=== PATIENT | female | born 1980 ===

== ENCOUNTER 2017-01-07 17:28 | Observation (INO) | payer OTHER ==
[2017-01-07] MEDS ORDERED: Iohexol 240 (50 ml) PO ONE (18:34)
[2017-01-07] MEDS ORDERED: Sodium Chloride 0.9% 1,000 ML IV STA (18:35)
--- NOTE | 2017-01-07 18:48 | ED PDOC ---
HPI: Abdomen Time Seen by Provider: 01/07/17 18:12 Chief Complaint (Nursing): Abdominal Pain Chief Complaint (Provider): Abdominal Pain History Per: Patient History/Exam Limitations: no limitations Onset/Duration Of Symptoms: Days (2x) Current Symptoms Are (Timing): Still Present Severity: Moderate Location Of Pain/Discomfort: Periumbilical Associated Symptoms: Nausea, Vomiting. denies: Fever, Diarrhea, Constipation Additional Complaint(s): 36 year old female with no pertinent medical history presents to the ED with complaints of abdominal pain accompanied by nausea, vomiting and diarrhea that started 2x days ago. Patient took motrin prior to arrival with no relief. She denies having constipation, or any other medical complaints. Past Medical History Reviewed: Historical Data, Nursing Documentation, Vital Signs Vital Signs: Last Vital Signs Temp 97.8 F 01/07/17 17:46 Pulse 96 H 01/07/17 17:46 Resp 18 01/07/17 17:46 BP 143/69 01/07/17 17:46 Pulse Ox 100 01/07/17 18:58 - Medical History PMH: No Chronic Diseases - Surgical History Other surgeries: tummy tuck (years ago) - Family History Family History: States: Unknown Family Hx - Social History Current smoker - smoking cessation education provided: No Alcohol: None Drugs: Denies - Immunization History Hx Tetanus Toxoid Vaccination: No - Home Medications Home Medications: Ambulatory Orders Medication Instructions Recorded Acetaminophen/Oxycodone Hydr 1 tab PO Q4H #15 tab 08/07/13 [Percocet 325 mg-5 mg] - Allergies Allergies/Adverse Reactions: Allergies Allergy/AdvReac Type Severity Reaction Status Date / Time No Known Allergies Allergy Unverified 08/07/13 13:50 Review of Systems ROS Statement: Except As Marked, All Systems Reviewed And Found Negative Constitutional: Negative for: Fever Gastrointestinal: Positive for: Nausea, Vomiting, Abdominal Pain. Negative for : Diarrhea, Constipation Physical Exam - Reviewed Nursing Documentation Reviewed: Yes Vital Signs Reviewed: Yes - Physical Exam Appears: Positive for: Non-toxic, In Acute Distress (mild painful distress) Head Exam: Positive for: ATRAUMATIC, NORMOCEPHALIC Skin: Positive for: Normal Color, Warm, Dry Cardiovascular/Chest: Positive for: Regular Rate, Rhythm Respiratory: Positive for: Normal Breath Sounds. Negative for: Respiratory Distress Gastrointestinal/Abdominal: Positive for: Tenderness (periumbilical tenderness) Back: Positive for: Normal Inspection Neurologic/Psych: Positive for: Alert, Oriented (3x) - ECG O2 Sat by Pulse Oximetry: 100 (RA) Pulse Ox Interpretation: Normal Medical Decision Making Medical Decision Makin:12 Initial impression: 36 year old female with abdominal pain, nausea, vomiting, and diarrhea. Initial plan: * type and screen * beta-HCG * CMP * lipase * CBC * IV NS 1,000ml IV 200mls/hr * zofran 4mg IV * pepcid 20mg IVP * US abdomen complete * reevaluation 18:34 Patient is being placed into ED observation secondary to clinical condition. See ED observation note for further update. 19:00 Patient is singed out to Shady Whelan MD pending labs, US, reevaluation, and final disposition. Scribe Attestation: Documented by Mala Harrell, acting as a scribe for Eldon Ibrahim MD. Provider Scribe Attestation: All medical record entries made by the Scribe were at my direction and personally dictated by me. I have reviewed the chart and agree that the record accurately reflects my personal performance of the history, physical exam, medical decision making, and the department course for this patient. I have also personally directed, reviewed, and agree with the discharge instructions and disposition. ED OBSERVATION Date of observation admission: 01/07/17 Time of observation admission: 18:34 - Observation admission statement Patient is being placed in observation because:: Need for additional diagnostics to rule out acute or life threatening condition. - Goals of Observation Goals of observation are:: Resolution of symptoms - Progress Note Progress Note: 01/07/17 19:01 Rule out ectopic
[2017-01-07 18:54] LABS: BASO # 0.1 K/uL (0.0-0.2); BASO % 0.4 % (0.0-2.0); EOS # 0.1 K/uL (0.0-0.7); EOS % 0.8 % (0.0-4.0); HEMATOCRIT 37.9 % (34.0-47.0); LYMPH # 3.3 K/uL (1.0-4.3); LYMPH % 25.3 % (20.0-40.0); MEAN CORPUSCULAR HGB CONC 31.8 g/dL (33.0-37.0); MEAN PLATELET VOLUME 8.9 fl (7.2-11.7); MONO # 0.7 K/uL (0.0-0.8); MONO % 5.4 % (0.0-10.0); NEUT # 8.8 K/uL (1.8-7.0); NEUT % 68.1 % (50.0-75.0); NRBC % 0.1 % (0.0-0.0); RED CELL DISTRIBUTION WIDTH 16.2 % (11.5-14.5); WHITE BLOOD COUNT 12.9 K/uL (4.8-10.8)
--- NOTE | 2017-01-07 19:06 | ED PDOC ---
- Laboratory Results Result Diagrams: 01/07/17 18:41 01/07/17 18:41 - ECG O2 Sat by Pulse Oximetry: 100 (RA) Medical Decision Making Medical Decision Makin:00 Patient is signed out to me by Hung Ibrahim pending US, labs, reevaluation, and final disposition. US impression: 1. Single live intrauterine gestation. 2. RIGHT ovarian cyst. US abdomen complete impression: 1. Hepatic steatosis. 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 Return precautions given. Scribe Attestation: Documented by Mala Harrell, acting as a scribe for Shady Whelan MD. Provider Scribe Attestation: All medical record entries made by the Scribe were at my direction and personally dictated by me. I have reviewed the chart and agree that the record accurately reflects my personal performance of the history, physical exam, medical decision making, and the department course for this patient. I have also personally directed, reviewed, and agree with the discharge instructions and disposition. Disposition - Clinical Impression Clinical Impression: Abdominal pain during - POA Present On Arrival: None - Disposition Disposition: Routine/Home Disposition Time: 23:10 Condition: STABLE
[2017-01-07 19:09] LABS: ALB/GLOB RATIO 1.3 (1.0-2.1); ALKALINE PHOSPHATASE 78 U/L (38-126); ALT/SGPT 33 U/L (9-52); AST/SGOT 28 U/L (14-36); BILIRUBIN,TOTAL 0.2 mg/dl (0.2-1.3); BLOOD UREA NITROGEN 12 mg/dl (7-17); CALCIUM 8.9 mg/dL (8.4-10.2); CARBON DIOXIDE 23 mmol/L (22-30); CHLORIDE 105 mmol/L (98-107); GFR AFRICAN-AMERICAN > 60; GLUCOSE,RANDOM 66 mg/dL (65-105); LIPASE 101 U/L (23-300); POTASSIUM 3.6 MMOL/L (3.6-5.0); SODIUM 138 mmol/l (132-148); TOTAL PROTEIN 7.5 G/DL (6.3-8.2)
--- NOTE | 2017-01-07 21:42 | US ---
EXAM: US First Trimester, Transabdominal CLINICAL HISTORY: 36 years old, female; Pain; Other: Abd pain; Gestational age or lmp: Unknown; ; Additional info: Early preg, abd pain TECHNIQUE: Real-time transabdominal obstetrical ultrasound of the maternal pelvis and a first trimester with image documentation. COMPARISON: No relevant prior studies available. FINDINGS: Gestation: Single live intrauterine gestation. heart rate of 155 beats per minute. [place]-rump length of 0.97 cm, correlating with gestational age of 7 weeks 0 days. Uterus/cervix: No subchorionic hemorrhage. No cervical dilatation or effacement. Ovaries: RIGHT ovary: 1.5 x 1.3 x 1.3 cm anechoic lesion. LEFT ovary: Not visualized. No adnexal masses. Free fluid: No significant free fluid. IMPRESSION: 1. Single live intrauterine gestation. 2. RIGHT ovarian cyst. 3. Incidental/non-acute findings are described above. EXAM: US , Transvaginal CLINICAL HISTORY: 36 years old, female; Pain; Other: Abd pain; Gestational age or lmp: Unknown; ; Additional info: Early preg, abd pain TECHNIQUE: Real-time transvaginal obstetrical ultrasound of the maternal pelvis and a first trimester with image documentation. Transvaginal imaging was used for better evaluation of the fetus and adnexa. COMPARISON: No relevant prior studies available. FINDINGS: Gestation: Single live intrauterine gestation. heart rate of 155 beats per minute. [place]-rump length of 0.97 cm, correlating with gestational age of 7 weeks 0 days. Uterus/cervix: No subchorionic hemorrhage. No cervical dilatation or effacement. Ovaries: RIGHT ovary: 1.5 x 1.3 x 1.3 cm anechoic lesion. LEFT ovary: Not visualized. No adnexal masses. Free fluid: No significant free fluid.
--- NOTE | 2017-01-07 21:44 | US ---
EXAM: US Abdomen Complete CLINICAL HISTORY: 36 years old, female; Pain; Abdominal pain; Generalized; ; Additional info: Diffuse abd pain TECHNIQUE: Real-time ultrasound of the abdomen (complete) with image documentation. COMPARISON: No relevant prior studies available. FINDINGS: Liver: Fatty infiltration. No mass. No extrahepatic ductal dilatation. Gallbladder: Fold. No gallstones. No wall thickening. No pericholecystic fluid. No sonographic Cornejo's sign. Common bile duct: No dilatation. No stones. Pancreas: Unremarkable as visualized. Kidneys: Normal echogenicity. No hydronephrosis. Spleen: No splenomegaly. Aorta: Unremarkable. No aneurysm. Inferior vena cava: Unremarkable. Free fluid: No significant free fluid. IMPRESSION: 1. Hepatic steatosis. 2. Incidental/non-acute findings are described above.
[2017-01-07 23:08] VITALS: BP 129/73; PULSE 82; RESP 16
[2017-01-07 23:09] VITALS: TEMP 98.2
[2017-01-07 23:24] VITALS: O2SAT 100
== END 2017-01-07 22:53 | disposition home or self-care (01) ==
LOC: H.ER 17:28 → H.EROBSV 18:34
PROVIDERS: ADMIT Emergency Medicine; ATTEND Emergency Medicine
DX: O34.81 Maternal care for other abnormalities of pelvic organs, first trimester (principal); N83.201 Unspecified ovarian cyst, right side; Z3A.01 Less than 8 weeks gestation of pregnancy; K76.0 Fatty (change of) liver, not elsewhere classified; R10.9 Unspecified abdominal pain

== ENCOUNTER 2017-02-06 03:13 | Emergency (ER) | payer OTHER ==
[2017-02-06 03:29] VITALS: BP 120/76; PULSE 97; RESP 16; TEMP 98.6; O2SAT 98
--- NOTE | 2017-02-06 03:57 | ED PDOC ---
HPI: Female Pain Time Seen by Provider: 02/06/17 03:44 Chief Complaint (Nursing): Female Genitourinary Chief Complaint (Provider): Vaginal Bleeding History Per: Patient History/Exam Limitations: no limitations Onset/Duration Of Symptoms: Hrs (x1) Current Symptoms Are (Timing): Still Present Quality Of Discomfort: denies: "Pain" Additional Complaint(s): 36 year old female presents to ED with complaints of vaginal bleeding x1 hour, is currently 12 weeks , and has a past medical history of DM. Patient states she woke up to go to the bathroom when she noticed the blood. Describes it as bright red blood with no clotting. (-) abdominal pain. Patient notes that when she was first diagnosed with she had mild vaginal bleeding that has since resolved. States that she takes ASA QD for hypercoagulable state. PCP: KATELYNN Abnormal Vaginal Bleeding: Yes : 2 Para: 1 Past Medical History Reviewed: Historical Data, Nursing Documentation, Vital Signs Vital Signs: Last Vital Signs Temp 98.6 F 02/06/17 03:26 Pulse 97 H 02/06/17 03:26 Resp 16 02/06/17 03:26 BP 120/76 02/06/17 03:26 Pulse Ox 98 02/06/17 03:26 - Medical History PMH: Diabetes - Family History Family History: States: No Known Family Hx - Social History Current smoker - smoking cessation education provided: No Ex-Smoker (has not smoked in the last 12 months): No Alcohol: None Drugs: Denies - Immunization History Hx Tetanus Toxoid Vaccination: No - Home Medications Home Medications: Ambulatory Orders Medication Instructions Recorded Acetaminophen/Oxycodone Hydr 1 tab PO Q4H #15 tab 08/07/13 [Percocet 325 mg-5 mg] - Allergies Allergies/Adverse Reactions: Allergies Allergy/AdvReac Type Severity Reaction Status Date / Time No Known Allergies Allergy Unverified 08/07/13 13:50 Review of Systems ROS Statement: Except As Marked, All Systems Reviewed And Found Negative Gastrointestinal: Negative for: Abdominal Pain Genitourinary Female: Positive for: Vaginal Bleeding Physical Exam - Reviewed Nursing Documentation Reviewed: Yes Vital Signs Reviewed: Yes - Physical Exam Appears: Positive for: Non-toxic, No Acute Distress Head Exam: Positive for: ATRAUMATIC Skin: Positive for: Normal Color, Warm, Dry Eye Exam: Positive for: Normal appearance Cardiovascular/Chest: Positive for: Regular Rate, Rhythm. Negative for: Murmur Respiratory: Positive for: Normal Breath Sounds. Negative for: Respiratory Distress Gastrointestinal/Abdominal: Positive for: Normal Exam, Soft. Negative for: Tenderness Back: Positive for: Normal Inspection Extremity: Positive for: Normal ROM. Negative for: Deformity Neurologic/Psych: Positive for: Alert, Oriented. Negative for: Motor/Sensory Deficits - Laboratory Results Result Diagrams: 02/06/17 04:08 - ECG O2 Sat by Pulse Oximetry: 98 (RA) Pulse Ox Interpretation: Normal Medical Decision Making Medical Decision Makin Initial impression: vaginal bleeding in setting of early Initial plan: * BETA HCG QUANT * Labs * US OB TRANSVAGINAL PREG 0602 US FINDINGS Gestation: Single live intrauterine gestation. motion is observed. heart motion is observed at 156 beats per minute. Estimated age based on the current measurement is 12.4 weeks. Placenta/amniotic fluid: Cervix measures 4.1 CM and is suboptimally visualized. No previa is identified. Uterus/cervix: Unremarkable. No myometrial mass. Ovaries: Right ovary measures 3.4 x 3.0 x 2.5 CM. Left ovary is not adequately visualized. Free fluid: No free fluid. Other findings: Presentation is variable. IMPRESSION: 1. Cervix measures 4.1 CM and is suboptimally visualized. No previa is identified. 2. Presentation is variable. 3. Single live intrauterine gestation. motion is observed. 4. heart motion is observed at 156 beats per minute. 5. Estimated age based on the current measurement is 12.4 w Labs reviewed: no clinically significant abnormalities Blood type known from previous labs: O+ Dx: Threatened AB Patient is stable for discharge and will follow up with OB within 2 days. Provider advises pelvic rest. Scribe Attestation: Documented by Aixa Jain acting as a scribe for David Skelton MD. Scribe Attestation: All medical record entries made by the Scribe were at my direction and personally dictated by me. I have reviewed the chart and agree that the record accurately reflects my personal performance of the history, physical exam, medical decision making, and the department course for this patient. I have also personally directed, reviewed, and agree with the discharge instructions and disposition. Disposition - Clinical Impression Clinical Impression: Threatened miscarriage - Patient ED Disposition Is Patient to be Admitted: No Counseled Patient/Family Regarding: Studies Performed, Diagnosis, Need For Followup - Disposition Disposition: Routine/Home Disposition Time: 06:02 Condition: STABLE Additional Instructions: Please follow up with your Ticket Broker in 1-2 days Instructions: Threatened Miscarriage (ED) Forms: [facility] ED School/Work Excuse
[2017-02-06 04:11] LABS: BASO # 0.1 K/uL (0.0-0.2); BASO % 0.6 % (0.0-2.0); EOS # 0.1 K/uL (0.0-0.7); HEMOGLOBIN 11.8 g/dL (12.0-16.0); LYMPH # 3.1 K/uL (1.0-4.3); LYMPH % 23.8 % (20.0-40.0); MEAN CELL VOLUME 86.2 fl (81.0-99.0); MEAN CORPUSCULAR HEMOGLOBIN 28.1 pg (27.0-31.0); MEAN CORPUSCULAR HGB CONC 32.6 g/dL (33.0-37.0); MEAN PLATELET VOLUME 8.6 fl (7.2-11.7); MONO # 0.7 K/uL (0.0-0.8); MONO % 5.7 % (0.0-10.0); NEUT % 68.9 % (50.0-75.0); NRBC % 0.2 % (0.0-0.0); RBC 4.18 Mil/uL (3.80-5.20); RED CELL DISTRIBUTION WIDTH 16.1 % (11.5-14.5); WHITE BLOOD COUNT 13.1 K/uL (4.8-10.8)
--- NOTE | 2017-02-06 06:02 | US ---
EXAM: US , Transvaginal CLINICAL HISTORY: 36 years old, female; Pain; complicated by abdominal or pelvic pain; Lower; First trimester; Gestational age or lmp: 11/20/2016; ; Patient HX: Pt states bleeding clots x2hrs; Additional info: Preg vag bld TECHNIQUE: Real-time transvaginal obstetrical ultrasound of the maternal pelvis and a first trimester with image documentation. Transvaginal imaging was used for better evaluation of the fetus and adnexa. COMPARISON: US - OB PREG 1ST TRI OB TRANSVAG 01/07/2017 8:44:22 PM FINDINGS: Gestation: Single live intrauterine gestation. motion is observed. heart motion is observed at 156 beats per minute. Estimated age based on the current measurement is 12.4 weeks. Placenta/amniotic fluid: Cervix measures 4.1 CM and is suboptimally visualized. No previa is identified. Uterus/cervix: Unremarkable. No myometrial mass. Ovaries: Right ovary measures 3.4 x 3.0 x 2.5 CM. Left ovary is not adequately visualized. Free fluid: No free fluid. Other findings: Presentation is variable. IMPRESSION: 1. Cervix measures 4.1 CM and is suboptimally visualized. No previa is identified. 2. Presentation is variable. 3. Single live intrauterine gestation. motion is observed. 4. heart motion is observed at 156 beats per minute. 5. Estimated age based on the current measurement is 12.4 weeks.
== END 2017-02-06 06:25 | disposition home or self-care (01) ==
LOC: H.ER 03:13
DX: O20.0 Threatened abortion (principal); E11.9 Type 2 diabetes mellitus without complications; Z79.82 Long term (current) use of aspirin